=== PATIENT | female | born 1960 | race Two or more races ===

== ENCOUNTER → 2016-12-06 | Outpatient (CLI) | payer BC ==
--- NOTE | 2016-12-06 11:54 | RADRPT ---
PROCEDURE: XR left knee. CLINICAL INDICATION: Knee pain TECHNIQUE: AP weightbearing, PA weightbearing, lateral weightbearing and sunrise views are availab le for review. COMPARISON: None available FINDINGS: There is calcific enthesopathy involving the anterior superior aspect of the patella. There is moder ate osteoarthrosis involving the medial tibial femoral compartment and mild osteoarthrosis involving the lateral tibial femoral compartment and the patellofemoral compartment. This is associated with joint space narrowing, subchondral sclerosis and osteophytosis. The osseous structures are otherwise normal in mineralization, architecture and alignment. No fract ures are identified. No osseous lesions are identified. The soft tissues are unremarkable. IMPRESSION: Calcific enthesopathy involving the anterior superior aspect of the patella. Moderate osteoarthrosis involving the medial tibial femoral compartment and mild osteoarthrosis invo lving the lateral tibial femoral compartment and the patellofemoral compartment. RPTAT: [facility] .Rick Price MD, MD Date Time Electronically viewed and signed by .Rick Price MD, on 12/06/2016 11:54 .B/
== END | disposition home or self-care (01) ==
LOC: EDBD 11:31 → HKI 11:31
PROVIDERS: ATTEND Orthopaedic Surgery
DX: M25.562 Pain in left knee (principal); M17.12 Unilateral primary osteoarthritis, left knee
CPT/HCPCS: 73564; Z7500; G0463

== ENCOUNTER → 2017-01-26 | Outpatient (CLI) | payer BC ==
--- NOTE | 2017-01-26 10:16 | PN ---
Date/Time of Note Date/Time of Note DATE: 01/26/17 TIME: 10:12 Assessment/Plan VTE Prophylaxis VTE Prophylaxis Intervention: ambulation Assessment/Plan Assessment/Plan ASSESSMENT: Left knee osteoarthritis PLAN: The patient underwent a left knee Monovisc injection today. She tolerated the procedure well. She is to take [id number] anti- inflammatories and apply ice to her knee as needed. Additionally she should modify her activity. We will see her back on an as needed basis. She is to call the office that she would like to repeat the injection in 6 months. PROCEDURE: The procedure was fully explained to the patient, and informed consent was obtained prior to the start of procedure. The superolateral aspect the left knee was sterilized using Betadine and anesthetized using ethyl chloride. 4 cc of Monovisc was injected intra-articularly to the left knee using the superiolateral approach. The patient tolerated the procedure well. A sterile dressing was then applied. All questions and concerns were addressed at the time of procedure. Subjective 24 Hr Interval Summary Free Text/Dictation The patient presents today for a follow-up visit on her left knee. She is here today for a Monovisc injection to her left knee. She has been having increased discomfort to her left knee. She denies any recurrent fall, trauma, or injury. She denies any fevers or chills. She is here today for a Visco supplementation injection to her left knee. Exam/Review of Systems Exam On exam today, she is alert and oriented 4, and in no acute distress. Exam of the left knee demonstrates no effusion. Range of motion 0-130 varus and valgus forces are stable. She does have medial and lateral joint line tenderness. There is 2+ patellofemoral crepitus. There is no erythema or warmth noted. Compartments are soft otherwise. She is neurovascularly intact distally DONAL GODINEZ PA-C Jan 26, 2017 10:16
== END | disposition home or self-care (01) ==
LOC: HKI 09:00
PROVIDERS: ATTEND Orthopaedic Surgery
DX: M17.12 Unilateral primary osteoarthritis, left knee (principal)
CPT/HCPCS: 20610; J7327